=== PATIENT | female | born 1980 | race African-American/Black ===

== ENCOUNTER 2016-11-14 16:23 | Inpatient (IN) | payer MEDICAID ==
[~2016-11-14] VITALS: Ht 177.8 cm; Wt 103.4 kg
[~2016-11-14 16:23] MED LIST: LITH300C3 PO
[2016-11-14 17:29] VITALS: BP 137/88
[2016-11-14] MEDS: LORazepam 2 MG TABLET PO PRN (17:54)
[2016-11-15 07:01] VITALS: BP 135/78
[2016-11-15 08:42] VITALS: BP 122/69
[2016-11-15 08:48] LABS: BASOPHILS % (AUTO) 0.4 % (0.0-2.0); EOSINOPHILS % (AUTO) 1.2 % (1.0-6.0); HEMATOCRIT 44.4 % (36-46); HEMOGLOBIN 14.7 g/dL (12.0-16.0); LYMPHOCYTES # (AUTO) 3.4 K/uL (1.0-4.8); LYMPHOCYTES % (AUTO) 35.1 % (22.0-44.0); MEAN CORPUSCULAR HEMOGLOBIN 29.6 pg (26.0-34.0); MEAN CORPUSCULAR HGB CONC 33.1 G/dL (31.0-37.0); MEAN CORPUSCULAR VOLUME 89 fL (80-100); MONOCYTES # (AUTO) 0.5 K/uL (0.1-1.0); MONOCYTES % (AUTO) 5.3 % (2.0-9.0); NEUTROPHILS # (AUTO) 5.7 K/uL (1.8-7.7); PLATELET COUNT (AUTO) 411 K/uL (150-450); RED BLOOD CELL COUNT(AUTO) 4.97 MIL/uL (4.00-5.20); RED CELL DISTRIBUTION WIDTH 12.6 % (11.5-14.5); WHITE BLOOD COUNT (AUTO) 9.8 K/uL (4.5-11.0)
[2016-11-15] MEDS ORDERED: NICOTINE 7 MG/24 HOUR PATCH TD SCH (09:00)
[2016-11-15] MEDS ORDERED: LITHIUM CARBONATE 300 MG CAPSULE PO SCH (09:00)
[2016-11-15] MEDS: ARIPiprazole 10 MG TABLET PO SCH (09:35)
[2016-11-15] MEDS: LORazepam 2 MG TABLET PO PRN ×2 (09:35→16:06)
[2016-11-15 09:46] LABS: HEMOGLOBIN A1C 5.4 % (4.5-6.2)
[2016-11-15 10:36] LABS: ALANINE AMINOTRANSFERASE 26 U/L (12-78); ALBUMIN 3.2 g/dL (3.4-5.0); ANION GAP 7 mmol/L (8-16); ASPARTATE AMINOTRANSFERASE 13 U/L (15-37); BILIRUBIN,TOTAL 0.4 mg/dL (0.1-1.0); CALCIUM, TOTAL 8.6 mg/dL (8.8-10.5); CARBON DIOXIDE 27 mmol/L (22-29); CHLORIDE 105 mmol/L (98-107); CHOL/HDL RATIO 4.5 (3.9-5.7); CREATININE 0.57 mg/dL (0.60-1.30); GLOMERULAR FILTR. RATE CALC > 60 mL/min (>60); POTASSIUM 3.8 mmol/L (3.5-5.1); SODIUM SERUM 139 mmol/L (136-145); THYROID STIMULATING HORMONE 2.02 uIU/mL (0.36-3.74); TOTAL PROTEIN, SERUM 6.9 g/dL (6.4-8.2); UREA NITROGEN, BLOOD 11 mg/dL (7-18)
[2016-11-15 16:00] VITALS: BP 130/71
[2016-11-15] MEDS: ZOLPIDEM TARTRATE 10 MG TABLET PO PRN (21:11)
[2016-11-15] MEDS ORDERED: IBUPROFEN 400 MG TABLET PO PRN (22:45)
[2016-11-15] MEDS ORDERED: ACETAMINOPHEN 325 MG TABLET PO PRN (22:45)
[2016-11-16 00:56] VITALS: BP 125/79
[2016-11-16] MEDS: LORazepam 2 MG TABLET PO PRN ×4 (00:58→22:14)
[2016-11-16 08:44] VITALS: BP 122/72
[2016-11-16] MEDS: ARIPiprazole 10 MG TABLET PO SCH (09:42)
[2016-11-16] MEDS: NICOTINE 21 MG/24 HOUR PATCH TD SCH (09:43)
[2016-11-16 16:00] VITALS: BP 115/66
[2016-11-16] MEDS: ZOLPIDEM TARTRATE 10 MG TABLET PO PRN (20:57)
[2016-11-17 00:44] VITALS: BP 124/75
[2016-11-17] MEDS: ARIPiprazole 10 MG TABLET PO SCH (08:45)
[2016-11-17] MEDS: NICOTINE 21 MG/24 HOUR PATCH TD SCH (08:46)
[2016-11-17 16:14] VITALS: BP 129/73
[2016-11-17] MEDS: LORazepam 2 MG TABLET PO PRN (16:46)
[2016-11-18 06:30] VITALS: BP 138/80
[2016-11-18] MEDS: ARIPiprazole 10 MG TABLET PO SCH (09:55)
[2016-11-18] MEDS: LORazepam 2 MG TABLET PO PRN ×2 (09:55→16:38)
[2016-11-18] MEDS: NICOTINE 21 MG/24 HOUR PATCH TD SCH (09:55)
[2016-11-18 10:07] VITALS: BP 132/78
[2016-11-18 16:18] VITALS: BP 141/77
[2016-11-18] MEDS: ZOLPIDEM TARTRATE 10 MG TABLET PO PRN (22:20)
[2016-11-19 06:45] VITALS: BP 130/72
[2016-11-19] MEDS: LORazepam 2 MG TABLET PO PRN ×2 (08:15→14:40)
[2016-11-19] MEDS: ARIPiprazole 10 MG TABLET PO SCH (08:15)
[2016-11-19] MEDS: NICOTINE 21 MG/24 HOUR PATCH TD SCH (08:15)
[2016-11-19 08:17] VITALS: BP 119/69
[2016-11-19 16:06] VITALS: BP 141/79
[2016-11-19] MEDS: ZOLPIDEM TARTRATE 10 MG TABLET PO PRN (23:53)
[2016-11-20] VITALS: BP 131/84
[2016-11-20 08:06] VITALS: BP 132/69
[2016-11-20] MEDS: NICOTINE 21 MG/24 HOUR PATCH TD SCH (08:17)
[2016-11-20] MEDS: ARIPiprazole 10 MG TABLET PO SCH (08:17)
[2016-11-20] MEDS: LORazepam 2 MG TABLET PO PRN (09:30)
[2016-11-20] MEDS ORDERED: ARIP15TA3 PO (11:16)
[2016-11-20 16:12] VITALS: BP 133/73
== END 2016-11-20 17:08 | disposition home or self-care (01) | DRG 750 ==
LOC: B3A 16:48 → EDSTATUS 16:52
PROVIDERS: ADMIT Psychiatry & Neurology Child & Adolescent Psychiatry; ATTEND Psychiatry & Neurology Child & Adolescent Psychiatry
DX: F25.9 Schizoaffective disorder, unspecified (principal); F31.4 Bipolar disorder, current episode depressed, severe, without psychotic features; R45.851 Suicidal ideations; E66.9 Obesity, unspecified; F17.210 Nicotine dependence, cigarettes, uncomplicated; E78.5 Hyperlipidemia, unspecified; F99 Mental disorder, not otherwise specified; F19.10 Other psychoactive substance abuse, uncomplicated; Z71.51 Drug abuse counseling and surveillance of drug abuser; Z71.6 Tobacco abuse counseling; Z68.32 Body mass index [BMI] 32.0-32.9, adult; Z63.72 Alcoholism and drug addiction in family
CPT/HCPCS: 83036; 84439; 84443

== ENCOUNTER 2020-07-08 21:02 | Emergency (ER) | payer MEDICAID, OTHER ==
[~2020-07-08] VITALS: Ht 160 cm; Wt 111.8 kg
[~2020-07-08 21:02] MED LIST changes: +ARIP15TA2 PO; -LITH300C3 PO
[2020-07-08] MEDS ORDERED: QUET200T PO (22:00)
[2020-07-08] MEDS ORDERED: ESCI20TA87 PO (22:00)
[2020-07-08] MEDS ORDERED: LORazepam 1 MG TABLET PO ONE (22:45)
[2020-07-08 23:29] LABS: COVID AG,FIA SOURCE NASOPHARYNGEAL
[2020-07-09 01:10] VITALS: BP 147/74
== END 2020-07-09 01:05 | disposition home or self-care (01) ==
LOC: EMS 21:02
DX: F31.9 Bipolar disorder, unspecified (principal); F15.10 Other stimulant abuse, uncomplicated; F17.210 Nicotine dependence, cigarettes, uncomplicated; Z20.828 Contact with and (suspected) exposure to other viral communicable diseases
CPT/HCPCS: 87426; 99406